=== PATIENT | female | born 1955 | race Caucasian/White ===

== ENCOUNTER 2020-06-05 05:38 | Day surgery (SDC) | payer MEDICARE, OTHER ==
[2020-06-05] MEDS ORDERED: Dextrose 5%-Lactated Ringers 1,000 ML IV SCH (06:22)
[2020-06-05] MEDS ORDERED: Propofol 200 MG/20 ML SDV ONE (07:02)
[2020-06-05] MEDS ORDERED: Midazolam 1 MG/ML 2 ML SDV ONE (07:03)
[2020-06-05] MEDS ORDERED: fentaNYL 100 MCG/2 ML SDV ONE (07:03)
[2020-06-05 08:47] VITALS: BP 116/77; PULSE 65
--- NOTE | 2020-06-06 17:36 | OR ---
DATE OF PROCEDURE: 06/05/2020 SURGEON: Adrian Knight MD PREOPERATIVE DIAGNOSIS: History of colon polyps. POSTOPERATIVE DIAGNOSIS: Normal colonoscopic examination with no recurrent colonic polyps. OPERATIVE PROCEDURE: Flexible colonoscopy. ANESTHESIA: IV sedation. INDICATIONS FOR PROCEDURE: 64-year-old female presenting with a history of colon polyps, for subsequent screening colonoscopy. Plan is to proceed with a colonoscopy with biopsies and polypectomy as indicated. Potential risks including bleeding and perforation were discussed, and the patient wishes to proceed. DETAILS OF PROCEDURE: The patient was taken to the operating room and placed in a left lateral decubitus position. IV sedation was administered, after which the initial digital rectal examination was performed which was unremarkable. Colonoscope was passed into the rectum with retroflexion revealing uncomplicated hemorrhoidal columns. Scope was eventually passed to the level of the cecum. The prep was quite good with only small liquid stool present to that level. No abnormalities were noted. There were no areas of diverticular disease, no areas of colitis, and no polyps or other signs of neoplasia. Scope was withdrawn, the above findings reconfirmed, and the procedure was then concluded. Given the personal history of colon polyps, recommendation will be to repeat the colonoscopy in 5 years. Adrian Knight MD /[id number]
== END 2020-06-05 09:13 | disposition home or self-care (01) ==
LOC: JP.SDS 05:38
PROVIDERS: ATTEND Surgery
DX: Z12.11 Encounter for screening for malignant neoplasm of colon (principal); K64.9 Unspecified hemorrhoids; Z86.010 Personal history of colon polyps; Z88.2 Allergy status to sulfonamides
CPT/HCPCS: J2250; J2704; J3010; J7121